=== PATIENT | female | born 1955 | race Caucasian/White ===

== ENCOUNTER 2018-02-21 08:15 | Observation (INO) | payer BC ==
[2018-02-16 15:30] VITALS: BMI 40.5
[2018-02-21 09:53] LABS: #Basophils 0.1 thou/uL (0.0-0.2); #Eosinphils 0.3 thou/uL (0.0-0.7); #Lymphocytes 3.4 thou/uL (1.20-3.40); #Monocytes 1.3 thou/uL (0.11-0.59); #Neutrophils 10.9 thou/uL (1.40-6.50); %Basophils 0.8 % (0.0-1.0); %Eosinophils 2.2 % (0.0-10.0); %Lymphocytes 21.1 % (21.0-51.0); %Monocytes 7.9 % (0.0-10.0); %Neutrophils 68.1 % (42.0-75.0); Hemoglobin 15.6 g/dL (12.0-16.0); Mean Corpuscular HGB CONC 32.6 g/dL (32.0-36.0); Mean Corpuscular Hemoglobin 30.9 pg (27.0-31.0); Mean Corpuscular Volume 94.8 fL (78.0-98.0); Mean Platelet Volume 9.2 fL (7.4-10.4); Platelet Count 313 thou/uL (130-400); RBC Distribution Width 12.3 % (11.5-14.5); Red Blood Cell (RBC) Count 5.06 mill/uL (4.20-5.40)
[2018-02-21 10:05] LABS: Anion Gap 12 mmol/L (10-20); BUN (Urea Nitrogen) 16 mg/dL (9.8-20.1); Calc. Creatinine Clearance 149 mL/min (70-130); Calcium 10.2 mg/dL (7.8-10.44); Carbon Dioxide 30 mmol/L (22-29); Chloride 102 mmol/L (98-107); Estimated GFR-MDRD 88; Glucose 119 mg/dL (70-105); Potassium 3.8 mmol/L (3.5-5.1); Sodium 140 mmol/L (136-145)
[2018-02-21] MEDS ORDERED: Sodium Chloride 0.9% 10 ML ONE (11:07)
[2018-02-21] MEDS ORDERED: Fentanyl 100 MCG/2 ML VIAL ONE ×3 (11:12→13:02)
[2018-02-21] MEDS ORDERED: Clindamycin/D5W 900 mg/50 ml Premix Bag ONE (11:17)
[2018-02-21] MEDS ORDERED: tiZANidine HCl 4 MG TAB PO PRN (12:54)
[2018-02-21] MEDS ORDERED: Promethazine 25 MG TAB PO PRN (12:54)
[2018-02-21] MEDS ORDERED: Milk Of Magnesia 30 ML UDCUP PO PRN (12:54)
[2018-02-21] MEDS ORDERED: Mag-Al 1200 mg/1200 mg/30 ML UDCUP PO PRN (12:54)
[2018-02-21] MEDS ORDERED: Promethazine HCl 25 MG/ML VIAL IM PRN (12:54)
[2018-02-21] MEDS ORDERED: Promethazine HCl 12.5 MG SUPP PR PRN (12:54)
[2018-02-21] MEDS ORDERED: diphenhydrAMINE 50 MG/ML VIAL IVP PRN (12:54)
[2018-02-21] MEDS ORDERED: Morphine 4 MG/ML VIAL SLOW IVP PRN (12:54)
[2018-02-21] MEDS ORDERED: HYDROcodone/Acetaminophen 10/325 mg Tablet PO PRN (12:54)
[2018-02-21] MEDS ORDERED: traMADol HCl 50 MG TAB PO PRN ×2 (12:54)
[2018-02-21] MEDS ORDERED: diphenhydrAMINE 25 MG CAP PO PRN (12:54)
[2018-02-21] MEDS ORDERED: Ondansetron PF 4 MG/2 ML Vial IVP PRN (12:56)
[2018-02-21] MEDS ORDERED: Morphine 2 MG/ML SYRINGE SLOW IVP PRN (13:00)
[2018-02-21] MEDS ORDERED: tiZANidine HCl 4 MG TAB ONE (13:22)
[2018-02-21] MEDS ORDERED: Glycopyrrolate 0.2 MG/ML 5 ML SYRINGE ONE (13:33)
[2018-02-21] MEDS ORDERED: Lidocaine 1% PF 5 ML VIAL ONE (13:33)
[2018-02-21] MEDS ORDERED: PROPOFOL 200 MG/20 ML VIAL ONE (13:33)
[2018-02-21] MEDS ORDERED: PHENYLEPHRINE-NS 100 MCG/ML 10 ML SYRINGE ONE (13:33)
[2018-02-21] MEDS ORDERED: Ketorolac Tromethamine 30 MG/ML VIAL ONE (13:33)
[2018-02-21] MEDS ORDERED: Ondansetron PF 4 MG/2 ML Vial ONE (13:33)
--- NOTE | 2018-02-21 13:45 | OP ---
DATE OF PROCEDURE: 02/21/2018 SURGEON: Konstantin Kimbrough M.D. PULP PRESS TENDER: Denny Armas PA-C PROCEDURE: Anterior cervical discectomy C5-6 and C6-7, interbody arthrodesis, intravertebral biomech anical device, local morselized autograft, demineralized bone matrix, anterior titanium instrumentati on C5-6 and C6-7. PROCEDURE IN DETAIL: The patient was brought to the operating room and intubated. She was positione d supine in modest extension on a gel-filled donut. Incision was made in the right precervical area and dissecting medial sternocleidomastoid muscle, identified the anterior cervical spine and our leve l was confirmed by x-ray. We debrided anterior osteophytes, placed distraction across the disk space s, and using the operating microscope and microdissection techniques, completely decompressed the C5- 6 and C6-7, the intravertebral disks decompressing the neural elements bilaterally. The bony endplat es were then decorticated for the purpose of arthrodesis and appropriately sized intravertebral biome chanical PEEK device was brought into the field, filled with demineralized bone matrix, local morseli zed autograft, and tapped into place securely at C5-6 and C6-7. Next, an anterior plate was brought in the field and secured to C5, C6, and C7 using two 14 mm screws at each level. The wound was then extensively irrigated, immaculate hemostasis was secured. The wound was closed in anatomic layers ov er a drain.
[2018-02-21] MEDS: Sodium Chloride 0.9% 1,000 ML IV SCH (16:09)
[2018-02-21] MEDS ORDERED: Morphine 10 MG/ML VIAL SLOW IVP PRN ×2 (16:45)
[2018-02-21] MEDS ORDERED: metFORMIN 500 MG TAB PO SCH (17:00)
[2018-02-21] MEDS: HYDROcodone/Acetaminophen 10/325 mg Tablet PO PRN (17:44)
--- NOTE | 2018-02-21 19:25 | EKG ---
Test Reason : PREOP Blood Pressure : / mmHG Vent. Rate : 078 BPM Atrial Rate : 078 BPM P-R Int : 174 ms QRS Dur : 084 ms QT Int : 382 ms P-R-T Axes : -21 001 024 degrees QTc Int : 435 ms Normal sinus rhythm Possible Inferior infarct (cited on or before 03-SEP-2013) Abnormal ECG When compared with ECG of 04-SEP-2013 06:32, No significant change was found Confirmed by CLAUDIO TELLO, . SJean Claude ([id number]) on 02/21/2018 7:24:26 PM Referred By: DMITRIY Confirmed By:DR. Deshawn SNYDER MD
[2018-02-21] MEDS: Clindamycin/D5W 900 MG in Premix Bag 1 BAG IVPB SCH (20:40)
[2018-02-21] MEDS ORDERED: Simvastatin 5 MG TAB PO SCH (21:00)
[2018-02-21] MEDS ORDERED: Losartan/Hydrochlorothiazide 100 mg/25 mg Tablet PO SCH (21:00)
[2018-02-22] MEDS: Sodium Chloride 0.9% 1,000 ML IV SCH (02:24)
[2018-02-22] MEDS: HYDROcodone/Acetaminophen 10/325 mg Tablet PO PRN (03:53)
[2018-02-22] MEDS: Clindamycin/D5W 900 MG in Premix Bag 1 BAG IVPB SCH (03:54)
--- NOTE | 2018-02-22 07:06 | DIS ---
DATE OF ADMISSION: 02/21/2018 DATE OF DISCHARGE: 02/22/2018 ATTENDING PHYSICIAN: Konstantin Kimbrough M.D. DISCHARGE SUMMARY: The patient is a 62-year-old female status post C5-C7 ACDF for cervical degenerative disk disease. Following her procedure, she was transitioned to the floor where her karen n was well controlled with p.o. medications, she was tolerating regular diet, and voiding appropriate ly. She has been up ambulating easily throughout the department. She did have a NKECHI drain placed int raoperatively in its output trended down nicely. A 45 mL out overnight. This was removed on postope rative day #1. On my exam this morning, she is awake, alert, comfortable, in no acute distress. She has free active range of motion in all extremities, 5/5 strength throughout. Sensation is intact to light touch. D ressing is dry. Incision is soft. We will plan to dismiss the patient to home. I have arranged follow up in 2 weeks with her office. I have discussed home care precautions and reason to reach out to us sooner. She has been provided p rescriptions for hydrocodone and Zanaflex.
[2018-02-22 07:51] VITALS: BP 155/67; TEMP 98.2
[2018-02-22] MEDS ORDERED: Meloxicam 15 MG TAB PO SCH (09:00)
[2018-02-22] MEDS ORDERED: Bupropion 150 MG XL TAB PO SCH (09:00)
== END 2018-02-22 08:45 | disposition home or self-care (01) ==
LOC: SDC 08:15 → 3SE 12:50
PROVIDERS: ADMIT Neurological Surgery; ATTEND Neurological Surgery
PROC: 0RG20A0 Fusion of 2 or more Cervical Vertebral Joints with Interbody Fusion Device, Anterior Approach, Anterior Column, Open Approach (ICD-10-PCS; principal; 2018-02-22)
PROC: 0RG2070 Fusion of 2 or more Cervical Vertebral Joints with Autologous Tissue Substitute, Anterior Approach, Anterior Column, Open Approach (ICD-10-PCS; 2018-02-22)
PROC: 0RT30ZZ Resection of Cervical Vertebral Disc, Open Approach (ICD-10-PCS; 2018-02-22)
DX: M50.122 Cervical disc disorder at C5-C6 level with radiculopathy (principal); M48.02 Spinal stenosis, cervical region; I10 Essential (primary) hypertension; E11.9 Type 2 diabetes mellitus without complications; E78.5 Hyperlipidemia, unspecified; Z79.1 Long term (current) use of non-steroidal anti-inflammatories (NSAID); Z79.82 Long term (current) use of aspirin; Z79.84 Long term (current) use of oral hypoglycemic drugs; Z79.899 Other long term (current) drug therapy; Z88.0 Allergy status to penicillin; Z88.2 Allergy status to sulfonamides; Z88.1 Allergy status to other antibiotic agents; Z88.8 Allergy status to other drugs, medicaments and biological substances
CPT/HCPCS: 36415; 76001; 80048; 85025; 93005; 93010; 96361; 96365; 96366; 96375; C1713; C1776; G0378; J0131; J1885; J2001; J2270; J2405; J2704; J3010; J3490

== ENCOUNTER 2018-03-10 15:39 | Outpatient (CLI) | payer BC ==
--- NOTE | 2018-03-10 15:57 | RAD ---
CERVICAL SPINE 3 VIEWS: HISTORY: Neck pain. Fracture. FINDINGS: Anterior fixation hardware at the C5-6-7 levels without perihardware lucency. Metallic markers assoc iated with interbody fusion material at the postoperative levels are within the confines of the disk spaces. Disk space narrowing and 0.3 cm spondylolisthesis at the C3-4 level. Moderate osteophytosis througho ut the vertebral bodies and facets. IMPRESSION: Postoperative and degenerative changes of the cervical spine including spondylolisthesis at the C3-4 level. POS: MELODY
== END 2018-03-10 15:40 | disposition home or self-care (01) ==
LOC: TBSIIMAG 15:39
PROVIDERS: ATTEND Neurological Surgery
DX: M47.22 Other spondylosis with radiculopathy, cervical region (principal); M43.12 Spondylolisthesis, cervical region; Z98.1 Arthrodesis status
CPT/HCPCS: 72040

== ENCOUNTER 2018-04-19 14:41 | Outpatient (CLI) | payer BC ==
--- NOTE | 2018-04-19 15:11 | RAD ---
CERVICAL SPINE THREE VIEWS: History: Cervical disc degeneration. Follow up surgery. Comparison: 03-10-18 FINDINGS: Post op changes are noted. The anterior plate and screws transfix C5, C6, and C7. Interbody implants are present at these levels. There has been no change in position or alignment of the hardware at the se levels. There is an anterolisthesis at C3-4 which appears stable. Loss of disc space at C3-4 is also unchange d in appearance. Degenerative changes are again noted. IMPRESSION: Degenerative and post-operative changes of the cervical spine appear stable. POS: TPC
== END 2018-04-19 14:42 | disposition home or self-care (01) ==
LOC: TBSIIMAG 14:41
PROVIDERS: ATTEND Neurological Surgery
DX: M47.22 Other spondylosis with radiculopathy, cervical region (principal); M50.10 Cervical disc disorder with radiculopathy, unspecified cervical region; Z98.890 Other specified postprocedural states
CPT/HCPCS: 72040

== ENCOUNTER 2018-11-30 22:35 | Inpatient (IN) | payer BC ==
--- NOTE | 2018-11-30 23:25 | RAD ---
Right knee 3 views HISTORY: Fall. Knee injury. FINDINGS: Extensively comminuted fracture of the distal femur including multiple planes into the bob cular surfaces of the femoral condyles. One half shaft width posterior displacement of the major distal fragments. Inferior displacement of the patella. Proximal tibia and fibula are favored to be i ntact. IMPRESSION: Extensively comminuted and displaced distal right femoral fracture with intra-articular c omponents.
--- NOTE | 2018-11-30 23:38 | RAD ---
Chest one view HISTORY: Fracture. Preop. FINDINGS: Cardiac silhouette is magnified by projection. Pulmonary vasculature is accentuated by shal low inspiration. Mediastinum is midline with aortic calcification. Aorta is somewhat tortuous. No lobar consolidation or evidence of pneumothorax. Right hemidiaphragm is elevated. Postoperative avila es cervical spine. IMPRESSION: No active cardiopulmonary abnormalities are demonstrated.
[2018-11-30 23:55] LABS: #Basophils 0.1 thou/uL (0.0-0.2); #Eosinphils 0.1 thou/uL (0.0-0.7); #Lymphocytes 1.9 thou/uL (1.20-3.40); #Monocytes 0.9 thou/uL (0.11-0.59); #Neutrophils 12.6 thou/uL (1.40-6.50); %Basophils 0.6 % (0.0-1.0); %Eosinophils 0.9 % (0.0-10.0); %Lymphocytes 12.4 % (21.0-51.0); %Monocytes 5.7 % (0.0-10.0); %Neutrophils 80.4 % (42.0-75.0); Hemoglobin 14.8 g/dL (12.0-16.0); Mean Corpuscular HGB CONC 33.6 g/dL (32.0-36.0); Mean Corpuscular Hemoglobin 31.6 pg (27.0-31.0); Mean Corpuscular Volume 93.8 fL (78.0-98.0); Mean Platelet Volume 9.4 fL (7.4-10.4); Platelet Count 246 thou/uL (130-400); RBC Distribution Width 12.2 % (11.5-14.5); Red Blood Cell (RBC) Count 4.68 mill/uL (4.20-5.40); White Blood Cell (WBC) Count 15.7 thou/uL (4.8-10.8)
[2018-12-01] MEDS ORDERED: Dextrose 5% in Water 1,000 ML IV PRN (00:14)
[2018-12-01] MEDS ORDERED: Ondansetron PF 4 MG/2 ML Vial IVP PRN (00:14)
[2018-12-01] MEDS ORDERED: Dextrose 50% Abboject 50 ML SYRINGE SLOW IVP PRN (00:14)
[2018-12-01] MEDS ORDERED: hydrALAZINE 20 MG/ML VIAL SLOW IVP PRN (00:14)
[2018-12-01] MEDS ORDERED: HumaLOG 300 UNITS/3 ML VIAL SC PRN (00:14)
[2018-12-01 00:17] LABS: ALT (SGPT) 13 U/L (8-55); AST (SGOT) 19 U/L (5-34); Albumin 3.9 g/dL (3.4-4.8); Alkaline Phosphatase 80 U/L (40-150); Anion Gap 13 mmol/L (10-20); BUN (Urea Nitrogen) 19 mg/dL (9.8-20.1); Bilirubin, Total 0.5 mg/dL (0.2-1.2); Calc. Creatinine Clearance 0 mL/min (70-130); Calcium 9.8 mg/dL (7.8-10.44); Carbon Dioxide 25 mmol/L (23-31); Chloride 105 mmol/L (98-107); Estimated GFR-MDRD 76; Globulin 2.9 g/dL (2.4-3.5); Glucose 137 mg/dL (80-115); Potassium 4.7 mmol/L (3.5-5.1); Protein, Total 6.8 g/dL (6.0-8.3); Sodium 138 mmol/L (136-145)
[2018-12-01] MEDS ORDERED: Morphine 4 MG/ML VIAL SLOW IVP PRN ×2 (00:25→09:47)
[2018-12-01] MEDS ORDERED: Polyethylene Glycol 3350 17 GM Packet PO SCH (00:30)
[2018-12-01] MEDS ORDERED: Ondansetron PF 4 MG/2 ML Vial ONE ×2 (00:38→12:44)
[2018-12-01] MEDS ORDERED: Ketorolac Tromethamine 30 MG/ML VIAL ONE (00:38)
[2018-12-01] MEDS ORDERED: Morphine 4 MG/ML VIAL ONE (00:38)
[2018-12-01] MEDS ORDERED: Adacel (T-DAP) 0.5 ML SYRINGE ONE (00:38)
[2018-12-01] MEDS ORDERED: Acetaminophen 1,000 MG in Premix Bag 1 BAG IVPB SCH (00:45)
--- NOTE | 2018-12-01 02:04 | HP ---
HISTORY OF PRESENT ILLNESS: Ms. Bernal is a 63-year-old female, who comes into the emergency room for evaluation of right lower extremity pain after mechanical fall at home. The patient reports she was walking inside the house. She tripped and fell on her knee. She reports no loss of consciousness or hitting her head. After fell, she was feeling pain of the right knee. She could not get up to walk and bear weight and that is why she called ambulance. Upon arrival, GCS 15. Vital signs stable. Reports to have some pain of the right knee. No associated head or chest pain. No pain of the abdomen or pelvis. DR Shine was consulted. Dr Shine will take patient to the OR for ORIF of R femur tomorrow. REVIEW OF SYSTEMS: Noncontributory except per HPI. PAST MEDICAL HISTORY: The patient does have a medical history of diabetes type 2, hypertension, arthritis. PAST SURGICAL HISTORY: Herniated disk surgery of the neck last year, herniated disk surgery of the back 18 years ago, appendicitis surgery. ALLERGIES: THE PATIENT REPORTS ALLERGY TO PENICILLIN, TETRACYCLINE, BACTRIM. CURRENT MEDICATIONS: Metformin 500 b.i.d. Losartan/ hydrochlorothiazide 100/ 25 mg daily Celecoxib 200mg daily Aspirin 81 mg daily SOCIAL HISTORY: Patient lives at home alone. She pretty active on her living function independently. She worked in [employer]. The patient denied alcohol use. Denied drug use. The patient smoked for 20 years, half a pack a day. PHYSICAL EXAMINATION: GENERAL: Patient lying down in bed, in no acute respiratory distress. Skin is pink and moist. GCS 15. HEENT: Atraumatic. No bruising. No deformity. NECK: Trachea midline. No tender to touch. Range of motion normal. CHEST: Atraumatic. No tender to touch. No crepitus. No deformity. No bruising. LUNGS: Clear bilaterally. HEART: Regular rate and rhythm. ABDOMEN: Nondistended. No deformity. Soft. Normal bowel sounds. No bruising. PELVIS: Stable. No tender to touch. EXTREMITIES: Upper extremity, normal range of motion, neurovascularly intact. Left lower extremity, normal range of motion, neurovascularly intact. Right extremity, pain of the right knee and right thigh. Edema, swelling, and bruising. Neurovascular intact downstream. Internal rotation of the right lower extremity. NEUROLOGY: No focal neurology deficits. INITIAL WORK UP: WC 16.3 Hb: 13.8 Potassium: 4.5 Creatinine: 0.7 XR Right femur: Comminuted fracture, displaced, intraarticular of distal R femur IMPRESSION: 1. Status post mechanical ground level fall. 2. Right distal femur fracture, comminuted. 3. History of diabetes, hypertension, arthritis. PLAN: The patient was consulted with Dr. Shine, Orthopedic. Dr. Shine will take the patient to the OR tomorrow for ORIF. The patient will be admitted to nonsurgical floor for pain control, n.p.o. at midnight and ready for OR tomorrow. We will put the patient on right knee brace for immobilization. Initiate DVT and gastritis and trauma bowel regiment prophylaxis. Job ID: [id number] MTDD
[2018-12-01 02:53] VITALS: BMI 42.0
[2018-12-01] MEDS: Sodium Chloride 0.9% 1,000 ML IV SCH ×3 (03:01→19:47)
[2018-12-01] MEDS: Acetaminophen 1,000 MG in Premix Bag 1 BAG IVPB SCH ×4 (05:10→23:01)
[2018-12-01] MEDS: Ketorolac Tromethamine 30 MG/ML VIAL IVP SCH ×4 (05:10→23:01)
[2018-12-01 05:28] LABS: #Basophils 0.1 thou/uL (0.0-0.2); #Lymphocytes 1.2 thou/uL (1.20-3.40); %Basophils 0.3 % (0.0-1.0); %Eosinophils 0.2 % (0.0-10.0); %Lymphocytes 7.2 % (21.0-51.0); %Monocytes 6.4 % (0.0-10.0); %Neutrophils 85.9 % (42.0-75.0); Hemoglobin 13.8 g/dL (12.0-16.0); Mean Corpuscular HGB CONC 32.5 g/dL (32.0-36.0); Mean Corpuscular Hemoglobin 30.8 pg (27.0-31.0); Mean Corpuscular Volume 94.8 fL (78.0-98.0); Mean Platelet Volume 9.3 fL (7.4-10.4); Platelet Count 232 thou/uL (130-400); RBC Distribution Width 12.2 % (11.5-14.5); Red Blood Cell (RBC) Count 4.48 mill/uL (4.20-5.40); White Blood Cell (WBC) Count 16.3 thou/uL (4.8-10.8)
[2018-12-01 05:47] LABS: Anion Gap 13 mmol/L (10-20); BUN (Urea Nitrogen) 20 mg/dL (9.8-20.1); Calc. Creatinine Clearance 148 mL/min (70-130); Calcium 9.5 mg/dL (7.8-10.44); Carbon Dioxide 27 mmol/L (23-31); Chloride 104 mmol/L (98-107); Estimated GFR-MDRD 85; Glucose 142 mg/dL (80-115); Magnesium 1.7 mg/dL (1.6-2.6); Potassium 4.5 mmol/L (3.5-5.1); Sodium 139 mmol/L (136-145)
[2018-12-01 05:54] LABS: Phosphorus 3.7 mg/dL (2.3-4.7)
[2018-12-01] MEDS ORDERED: Magnesium 2 GM/50 ML 2 GM in Premix Bag 1 BAG IVPB SCH (08:30)
[2018-12-01] MEDS ORDERED: Pantoprazole 40 MG VIAL IVP SCH (09:00)
[2018-12-01] MEDS: Simvastatin 5 MG TAB PO SCH (09:50)
[2018-12-01] MEDS: Bupropion 150 MG XL TAB PO SCH (09:50)
[2018-12-01] MEDS ORDERED: Bupivacaine HCl 0.5%/Epinephrine 1:200,000/PF 30 ml Vial ONE (12:21)
--- NOTE | 2018-12-01 12:27 | PRG ---
DATE OF SERVICE: 12/01/2018 A 63-year-old female status post ground level mechanical fall, right comminuted displaced intra-articular distal femur fracture, hospital day #2. SUBJECTIVE: The patient is in pain. She rates that pain 8/10. She received morphine IV about 3 hours ago when we saw her. She is n.p.o. for her operation today. Otherwise, she has no complaints. OBJECTIVE: VITAL SIGNS: Temp 98.5, pulse 83, respirations 18, O2 saturation 92% on room air, and blood pressure 138/72. GENERAL: The patient is well-appearing and in no acute distress, although she reports having pain. CARDIAC: Appears well perfused. RESPIRATIONS: No acute respiratory distress. Nonlabored breathing. ABDOMEN: Nondistended. EXTREMITIES: Neurovascularly intact. LABORATORY DATA: WBC 16.3, hemoglobin 13.8, hematocrit 42.4, and platelets 232. Sodium 139, potassium 4.5, chloride 104, carbon dioxide 27, BUN 20, and creatinine 0.70. Glucose 142, calcium 9.5, phosphorus 3.7, and magnesium 1.7. Her liver function tests yesterday were within normal limits. ASSESSMENT: 1. Status post mechanical ground level fall. 2. Right distal femur fracture, comminuted. 3. History of diabetes, hypertension, and arthritis. PLAN: The patient will go to the operating room today with Dr. Shine of Orthopedic Surgery. She will return to the nonsurgical floor for pain control. She may have a diet after the operation. The patient will be in a knee brace; we will begin VTE and gastritis prophylaxis at that time. We will also have kvng working with physical and occupational therapy after surgery. This patient was seen, examined, and discussed with Dr. Valdez, the attending physician, who agrees with the assessment and plan. Job ID: [id number] MTDD
[2018-12-01] MEDS ORDERED: PHENYLEPHRINE-NS 100 MCG/ML 10 ML SYRINGE ONE (12:44)
[2018-12-01] MEDS ORDERED: ePHEDrine 50 MG/ML VIAL ONE (12:44)
[2018-12-01] MEDS ORDERED: PROPOFOL 200 MG/20 ML VIAL ONE (12:44)
[2018-12-01] MEDS ORDERED: diphenhydrAMINE 50 MG/ML VIAL ONE (12:44)
[2018-12-01] MEDS ORDERED: Dexamethasone 20 MG/5 ML VIAL ONE (12:44)
[2018-12-01] MEDS ORDERED: Lidocaine 2% PF 5 ML VIAL ONE (12:44)
[2018-12-01] MEDS ORDERED: Clindamycin/D5W 900 mg/50 ml Premix Bag ONE (12:54)
[2018-12-01] MEDS ORDERED: Clindamycin/D5W 900 MG in Premix Bag 1 BAG IVPB SCH (13:00)
[2018-12-01] MEDS ORDERED: Fentanyl 100 MCG/2 ML VIAL ONE ×3 (13:10→15:00)
[2018-12-01] MEDS ORDERED: Midazolam HCl 2 mg/2 ml Vial ONE ×2 (13:10→13:28)
--- NOTE | 2018-12-01 14:53 | CON ---
DATE OF CONSULTATION: CHIEF COMPLAINT: Right leg pain. HISTORY OF PRESENT ILLNESS: Ms. Bernal is a 63-year-old female, who was at home yesterday when she tripped. She lost her balance and fell. She twisted her leg. She felt a pop and pain. She was unable to ambulate. She was taken to the emergency department by EMS. She lives alone and is independent. She does not use a cane or walker at baseline. She was found to have a right distal femur fracture. She was admitted to the hospital overnight. REVIEW OF SYSTEMS: Positive for right leg pain. Otherwise, negative 10-point review of systems. PAST MEDICAL HISTORY: Diabetes, obesity, hypertension, and osteoarthritis. PAST SURGICAL HISTORY: Previous cervical disk herniation repair as well as lumbar back surgery years ago. She has also had an appendectomy. ALLERGIES: TO PENICILLIN, TETRACYCLINE, AND BACTRIM. SOCIAL HISTORY: The patient lives at home. She works at [employer]. She denies alcohol or drug use. She does smoke cigarettes. IMAGES: X-rays of the right femur demonstrate a displaced and comminuted distal femur fracture with intra-articular extension. The patient has osteoporotic appearance to her bone. PHYSICAL EXAMINATION: VITAL SIGNS: Temperature is 97.8, pulse is 79, respiratory rate 20, oxygen saturation 93%, and blood pressure is 128/69. GENERAL: She is alert and oriented, no apparent distress. RESPIRATORY: Breathing comfortably. ABDOMEN: Soft, nontender, and nondistended. MUSCULOSKELETAL: The patient's right lower extremity is in a malaligned position with increased valgus alignment. She has an abrasion over the knee. She has intact neurovascular status distally. She is able to move the foot and ankle and has a palpable dorsalis pedis pulse. Left lower extremity and upper extremities are atraumatic. IMPRESSION: Right distal femur fracture. PLAN: At this point, the patient will need to go to the operating room for open reduction and internal fixation of the distal femur. We will plan for plating of the distal femur to correct her intercondylar split and stabilize the bone. Risks have been reviewed with her. She is at elevated risk of infection given her diabetes or wound complication. She is aware that she will need 6 weeks of toe-touch weightbearing at a minimum. She will need DVT prophylaxis and antibiotic prophylaxis. Job ID: [id number]
[2018-12-01] MEDS ORDERED: Meperidine HCl/PF 25 MG/ML VIAL SLOW IVP PRN (16:15)
[2018-12-01] MEDS ORDERED: Promethazine HCl 25 MG/ML VIAL SLOW IVP PRN (16:15)
[2018-12-01] MEDS ORDERED: Ondansetron HCl/PF 4 MG/2 ML Vial IVP PRN (16:15)
[2018-12-01] MEDS ORDERED: traMADol HCl 50 MG TAB PO PRN (18:22)
[2018-12-01] MEDS: traMADol HCl 50 MG TAB PO SCH ×2 (18:34→23:00)
[2018-12-01] MEDS: Senokot S 8.6-50 MG TAB PO SCH (18:34)
--- NOTE | 2018-12-01 18:50 | RAD ---
Right hand 2 views intraoperative fluoroscopy HISTORY: Fracture. FINDINGS: Intraoperative fluoroscopy was provided for internal fixation is by Dr. Shine. Spot flu oroscopic images show intraoperative placement of a lateral compression plate and multiple screws transfixing the distal femoral fracture. Alignment is anatomic. Fluoroscopy time 38 seconds.
[2018-12-01] MEDS: Losartan/Hydrochlorothiazide 100 mg/25 mg Tablet PO SCH (19:47)
[2018-12-01] MEDS: Clindamycin/D5W 900 MG in Premix Bag 1 BAG IVPB SCH (19:54)
--- NOTE | 2018-12-01 22:38 | OP ---
DATE OF PROCEDURE: 12/01/2018 PROCEDURE PERFORMED: Open reduction and internal fixation of right intra-articular distal femur fracture. PREOPERATIVE DIAGNOSIS: Right intra-articular distal femur fracture. POSTOPERATIVE DIAGNOSIS: Right intra-articular distal femur fracture. COMPLICATIONS: None. ESTIMATED BLOOD LOSS: 100 mL. ANESTHESIA: General plus regional. IMPLANTS: Synthes 16 hole distal femoral plate with multiple locking and nonlocking screws. INDICATIONS: Ms. Bernal is a 63-year-old female, who has fallen and fractured her distal femur. She has displacement and intra-articular step-off. She has been indicated for open reduction and internal fixation to restore anatomic alignment and promote healing. Risks have been reviewed in detail. She has elected to proceed with the operation. DESCRIPTION OF PROCEDURE: Ms. Bernal was identified in the preoperative holding area. Her correct extremity was marked. She was carried to the operating room. She was positioned supine. General anesthesia was induced. Intravenous antibiotics were administered. The right lower extremity was prepped and draped in sterile fashion. We began the procedure with a lateral approach to the distal femur. We made an incision over the knee and thigh. We dissected down through the subcutaneous tissues. The lateral fascia was split. We then performed a lateral arthrotomy. We evacuated hematoma. At this point, we encountered the displaced and comminuted distal femur fracture. There was an intercondylar split as well as Hoffa fracture through the lateral condyle. At this point, we reduced the transverse fracture through the lateral condyle and held this with K-wire fixation. We then placed a screw across this from front to back. Next, we reduced the intercondylar split. A screw was placed from lateral to medial, fixing the intercondylar split. At this point, we could reduce the condyles back to the shaft of the bone. This was accomplished. We then applied our 16-hole plate along the lateral cortex of the femur. We placed the screw proximally as well as K-wires distally. We took x-rays confirming plate position. There was no complication. At this point, we performed multiple screw placement starting distally filling all locking screws distally followed by proximal locking screw placement. We took x-ray images confirming hardware placement and reduction. There was no complications. We thoroughly irrigated with copious lavage. We then closed appropriately in layers starting with the fascia layer. A sterile dressing and a knee immobilizer was placed. Job ID: [id number]
[2018-12-02] MEDS: Ibuprofen 600 MG TAB PO SCH ×4 (00:25→18:01)
--- NOTE | 2018-12-02 01:01 | PRG ---
DATE OF SERVICE: 12/01/2018 SUBJECTIVE: Ms. Bernal is a 63-year-old female, who is status post ground level fall in which she sustained right distal femur fracture. She underwent ORIF of right distal femur fracture this evening. Postop, the patient is doing good. Pain is well controlled. She developed no fever or shortness of breath. OBJECTIVE: VITAL SIGNS: Stable. LUNGS: Clear bilaterally. HEART: Regular rate and rhythm. ABDOMEN: Soft, nondistended. EXTREMITIES: Neurovascularly intact x4. Dressing changed from the right femur, clean, clear, and intact. PLAN: Will be to continue supportive care. Continue pain control. Continue DVT and gastritic prophylaxis. The patient will be working with PT and OT tomorrow, anticipated placement in rehabilitation facility. Job ID: [id number]
[2018-12-02] MEDS: Acetaminophen 500 MG TAB PO SCH ×4 (05:04→23:38)
[2018-12-02] MEDS: traMADol HCl 50 MG TAB PO SCH ×4 (05:05→23:39)
[2018-12-02] MEDS: Senokot S 8.6-50 MG TAB PO SCH ×2 (05:05→18:00)
[2018-12-02] MEDS: Clindamycin/D5W 900 MG in Premix Bag 1 BAG IVPB SCH (05:07)
[2018-12-02 06:45] LABS: #Lymphocytes 1.3 thou/uL (1.20-3.40); #Monocytes 1.4 thou/uL (0.11-0.59); #Neutrophils 13.9 thou/uL (1.40-6.50); %Eosinophils 0.1 % (0.0-10.0); %Lymphocytes 7.5 % (21.0-51.0); %Monocytes 8.3 % (0.0-10.0); Hemoglobin 11.4 g/dL (12.0-16.0); Mean Corpuscular HGB CONC 32.6 g/dL (32.0-36.0); Mean Corpuscular Hemoglobin 30.6 pg (27.0-31.0); Mean Platelet Volume 9.3 fL (7.4-10.4); Platelet Count 204 thou/uL (130-400); RBC Distribution Width 11.8 % (11.5-14.5); Red Blood Cell (RBC) Count 3.72 mill/uL (4.20-5.40); White Blood Cell (WBC) Count 16.6 thou/uL (4.8-10.8)
[2018-12-02 07:17] LABS: Anion Gap 11 mmol/L (10-20); BUN (Urea Nitrogen) 16 mg/dL (9.8-20.1); Calc. Creatinine Clearance 164 mL/min (70-130); Calcium 9.1 mg/dL (7.8-10.44); Carbon Dioxide 28 mmol/L (23-31); Chloride 102 mmol/L (98-107); Estimated GFR-MDRD Greater than 90; Glucose 134 mg/dL (80-115); Magnesium 2.1 mg/dL (1.6-2.6); Phosphorus 2.8 mg/dL (2.3-4.7); Potassium 4.5 mmol/L (3.5-5.1); Sodium 136 mmol/L (136-145)
[2018-12-02] MEDS: Bupropion 150 MG XL TAB PO SCH (08:50)
[2018-12-02] MEDS: Simvastatin 5 MG TAB PO SCH (08:50)
[2018-12-02] MEDS: metFORMIN 500 MG TAB PO SCH ×2 (08:50→18:01)
[2018-12-02] MEDS: Aspirin 81 mg Enteric Coated Tablet PO SCH ×2 (08:56→20:32)
--- NOTE | 2018-12-02 15:21 | PRG ---
DATE OF SERVICE: 12/02/2018 SUBJECTIVE: The patient remains on the surgical floor. She is status post ground level fall, in which she sustained a right intra-articular distal femur fracture. Yesterday, she underwent open reduction and internal fixation of right intra-articular distal femur fracture. She tolerated this procedure well. She has not worked with Therapy yet. Overnight, she had no issues. This morning, her pain is controlled. She is tolerating a diet. PHYSICAL EXAMINATION: VITAL SIGNS: Temperature 98, heart rate 85, blood pressure 104/48, respirations 18, and oxygen saturation is 91% on room air. GENERAL: The patient is resting comfortably in bed. She is awake, alert, and oriented x3. Alex Coma Scale is 15. HEENT: Unremarkable. LUNGS: Clear to auscultation bilaterally. HEART: Regular rate and rhythm. ABDOMEN: Soft, flat, nontender with active bowel sounds. EXTREMITIES: Neurovascularly intact x4. Postop dressing is clean, dry, and intact. ASSESSMENT: 1. Status post ground level fall. 2. Status post open reduction and internal fixation of right distal femur fracture. 3. History of diabetes, hypertension, arthritis. PLAN: Plan will be to continue supportive care. Encourage physical and occupational therapy, rehab screening, and we will await final placement decision. The patient was evaluated this morning with Dr. Valdez during rounds. Job ID: [id number]
[2018-12-02] MEDS ORDERED: Ibuprofen 600 MG TAB PO SCH (18:30)
[2018-12-02] MEDS: Losartan/Hydrochlorothiazide 100 mg/25 mg Tablet PO SCH (20:32)
[2018-12-03] MEDS: Ibuprofen 600 MG TAB PO SCH ×4 (00:22→17:01)
--- NOTE | 2018-12-03 01:22 | PRG ---
DATE OF SERVICE: 12/03/2018 SUBJECTIVE: Ms. Bernal is a 63-year-old female who is status post ground level fall at home, in which she sustained right distal femur fracture. She underwent ORIF of right distal femur fracture. Postop 1, the patient has been doing good. Pain is well controlled. She developed no fever or shortness of breath. She tolerated regular diet. Urine is adequate. OBJECTIVE: GENERAL: Patient lying down in bed comfortably with no acute distress. VITAL SIGNS: Stable. LUNGS: Clear bilaterally. HEART: Regular rate and rhythm. ABDOMEN: Soft, nondistended. EXTREMITIES: Neurovascularly intact x4. Dressing from the right femur clean, clear, and intact. PLAN: We will continue supportive care. Continue pain control. Continue DVT and gastritis prophylaxis. Continue pulmonary toilet. Continue working with PT/OT tomorrow and anticipate placement in the rehabilitation facility. Job ID: [id number]
[2018-12-03] MEDS: Acetaminophen 500 MG TAB PO SCH ×3 (05:24→16:59)
[2018-12-03] MEDS: Senokot S 8.6-50 MG TAB PO SCH ×2 (05:25→16:59)
[2018-12-03] MEDS: traMADol HCl 50 MG TAB PO SCH ×3 (05:25→16:59)
[2018-12-03] MEDS: Bupropion 150 MG XL TAB PO SCH (08:17)
[2018-12-03] MEDS: Simvastatin 5 MG TAB PO SCH (08:17)
[2018-12-03] MEDS: metFORMIN 500 MG TAB PO SCH ×2 (08:17→17:00)
[2018-12-03] MEDS: Aspirin 81 mg Enteric Coated Tablet PO SCH ×2 (08:17→20:36)
--- NOTE | 2018-12-03 15:28 | PRG ---
DATE OF SERVICE: 12/03/2018 SUBJECTIVE: The patient is currently on the surgical floor. She is status post open reduction and internal fixation of a right distal femur fracture. She has been working with Physical and Occupational Therapy. Her pain is controlled. She is tolerating a diet. She is currently awaiting insurance approval for rehab. She has had no issues overnight. OBJECTIVE: VITAL SIGNS: Temperature is 97.8, heart rate 68, blood pressure 107/58, respirations 18, oxygen saturation is 95% on 2 L via nasal cannula. GENERAL: The patient is resting comfortably in bed. She is awake, alert, oriented, appropriate. HEENT: Unremarkable. LUNGS: Clear to auscultation with good inspiratory and expiratory effort. HEART: Regular rate and rhythm. ABDOMEN: Soft, flat, nontender with active bowel sounds. EXTREMITIES: Neurovascularly intact x4. Postop dressing is clean, dry, and intact. LABORATORY AND DIAGNOSTIC DATA: There are no labs or radiographs reviewed this morning. ASSESSMENT: 1. Status post ground level fall. 2. Status post open reduction and internal fixation of right distal femur fracture. 3. History of diabetes, hypertension, and arthritis. PLAN: Plan will be to continue supportive care, physical and occupational therapy, and await final placement decision. The patient was seen this morning with Dr. Valdez during rounds. Job ID: [id number]
[2018-12-03] MEDS: Losartan/Hydrochlorothiazide 100 mg/25 mg Tablet PO SCH (20:36)
--- NOTE | 2018-12-04 00:13 | PRG ---
DATE OF SERVICE: 12/03/2018 SUBJECTIVE: Ms. Bernal is a 63-year-old female, status post ground level fall. She sustained right distal femur fracture, underwent ORIF of right distal femur fracture. Postop day 2, the patient has been doing good. Pain is well controlled. She developed no fever or shortness of breath. Tolerating regular diet. She is able to work with PT/OT. OBJECTIVE: GENERAL: The patient is lying down in bed comfortable with no acute distress. VITAL SIGNS: Stable. LUNGS: Clear bilaterally. HEART: Regular rate and rhythm. ABDOMEN: Soft, nondistended. EXTREMITIES: Neurovascularly intact x4. Dressing from right femur clean, dry, and intact. PLAN: Will be to continue supportive care. Continue pain control. Continue DVT gastritis prophylaxis. Continue pulmonary toilet. Continue working with PT, OT. The patient will be anticipated placement in rehabilitation facility. Job ID: [id number]
[2018-12-04] MEDS: Acetaminophen 500 MG TAB PO SCH ×5 (00:40→23:56)
[2018-12-04] MEDS: traMADol HCl 50 MG TAB PO SCH ×5 (00:40→23:56)
[2018-12-04] MEDS: Ibuprofen 600 MG TAB PO SCH ×5 (00:40→23:59)
--- NOTE | 2018-12-04 03:16 | EKG ---
Test Reason : Blood Pressure : / mmHG Vent. Rate : 068 BPM Atrial Rate : 068 BPM P-R Int : 192 ms QRS Dur : 080 ms QT Int : 404 ms P-R-T Axes : 045 -08 062 degrees QTc Int : 429 ms Normal sinus rhythm Possible Left atrial enlargement Borderline ECG Confirmed by CHAI PASTRANA DO ([id number]), assistant editor RIYA BURCH ([id number]) on 12/04/2018 3:15:17 AM Referred By: Confirmed By:CHAI PASTRANA DO
[2018-12-04] MEDS: Senokot S 8.6-50 MG TAB PO SCH ×2 (06:22→17:03)
[2018-12-04] MEDS: Simvastatin 5 MG TAB PO SCH (08:38)
[2018-12-04] MEDS: Bupropion 150 MG XL TAB PO SCH (08:39)
[2018-12-04] MEDS: metFORMIN 500 MG TAB PO SCH ×2 (08:39→17:02)
[2018-12-04] MEDS: Aspirin 81 mg Enteric Coated Tablet PO SCH ×2 (08:39→20:50)
--- NOTE | 2018-12-04 19:56 | PRG ---
DATE OF SERVICE: 12/04/2018 SUBJECTIVE: The patient is currently on the surgical floor. She is status post ground level fall when she sustained a right distal femur fracture. She has undergone open reduction and internal fixation of same. She had no issues overnight. She states her pain is controlled. She is tolerating a diet. She unfortunately has not made much progress with Physical and Occupational Therapy. She has been able to get out of bed, but has not started utilizing a walker at this time. I had a lengthy discussion with her regarding rehab potential if she is not able to progress with Physical and Occupational Therapy, and that she may require jail facility. She felt it was more of weakness and then pain control prevented her. OBJECTIVE: VITAL SIGNS: Temperature is 98.1, heart rate 76, blood pressure 127/72, respirations 16, and oxygen saturation 92% on room air. GENERAL: The patient is resting comfortably in bed. She is just returned from being out of the room on a wheelchair. She has no complaints at this time. She is alert and oriented x3. HEENT: Unremarkable. LUNGS: Clear to auscultation with good inspiratory and expiratory effort. HEART: Regular rate and rhythm. ABDOMEN: Soft, flat, and nontender with active bowel sounds. EXTREMITIES: Neurovascularly intact x4. Postop dressing is clean, dry, and intact. LABORATORY AND DIAGNOSTIC DATA: There are no labs or radiographs to review this morning. ASSESSMENT: 1. Status post ground level fall. 2. Status post open reduction and internal fixation of right distal femur fracture. 3. History of diabetes, hypertension, and arthritis. PLAN: Plan will be to continue supportive care. Encourage physical and occupational therapy and await final placement decision. Job ID: [id number]
[2018-12-04] MEDS: Losartan/Hydrochlorothiazide 100 mg/25 mg Tablet PO SCH (20:50)
--- NOTE | 2018-12-05 00:50 | PRG ---
DATE OF SERVICE: 12/05/2018 SUBJECTIVE: Ms. Bernal is 63-year-old female, who status post ground level fall. She sustained right distal femur fracture, underwent ORIF of right distal femur fracture. Postop day 3, the patient has been doing good. Pain is well controlled. She developed no fever or shortness of breath. She tolerates regular diet. She is able to work with PT/OT. She has been working to strengthen her upper extremity strength, so she can use prosthesis at home. OBJECTIVE: GENERAL: The patient is lying down in bed comfortably with no acute distress. VITAL SIGNS: Stable. LUNGS: Clear bilaterally. HEART: Regular rate and rhythm. ABDOMEN: Soft and nondistended. EXTREMITIES: Neurovascularly intact x4. Dressing and splinting from right femur clean, dry, intact. PLAN: Will be continue supportive care. Continue pain control. Continue DVT and gastritis prophylaxis. Continue pulmonary toilet. Continue working with PT/OT. The patient will be anticipated placement in rehabilitation facility. Job ID: [id number]
[2018-12-05] MEDS: Ibuprofen 600 MG TAB PO SCH ×3 (06:11→18:00)
[2018-12-05] MEDS: traMADol HCl 50 MG TAB PO SCH ×3 (06:11→18:00)
[2018-12-05] MEDS: Senokot S 8.6-50 MG TAB PO SCH ×2 (06:11→18:00)
[2018-12-05] MEDS: Acetaminophen 500 MG TAB PO SCH ×3 (06:12→18:00)
[2018-12-05 07:23] LABS: Hemoglobin 10.7 g/dL (12.0-16.0); Mean Corpuscular Hemoglobin 31.2 pg (27.0-31.0); Mean Corpuscular Volume 94.6 fL (78.0-98.0); Mean Platelet Volume 9.5 fL (7.4-10.4); Platelet Count 237 thou/uL (130-400); Red Blood Cell (RBC) Count 3.42 mill/uL (4.20-5.40); White Blood Cell (WBC) Count 9.6 thou/uL (4.8-10.8)
[2018-12-05] MEDS: Aspirin 81 mg Enteric Coated Tablet PO SCH ×2 (08:01→20:43)
[2018-12-05] MEDS: metFORMIN 500 MG TAB PO SCH ×2 (08:01→18:00)
[2018-12-05] MEDS: Bupropion 150 MG XL TAB PO SCH (08:01)
[2018-12-05] MEDS: Simvastatin 5 MG TAB PO SCH (08:01)
[2018-12-05 08:02] LABS: Eosinophils 1 % (0-10); Lymphocytes 23 % (21-51); MDiff Complete? YES; Monocytes 9 % (0-10); Neutrophil 66 % (42-75); Platelet Morphology Comment Appears Adequate; Polychromasia SLIGHT = 2-3 cells (100X) (0-2/hpf)
--- NOTE | 2018-12-05 11:56 | PRG ---
DATE OF SERVICE: 12/05/2018 SUBJECTIVE: Abby Bernal is a 63-year-old female, who fell, underwent ORIF of her femur. The patient is awaiting the rehab assignment. She has no complaints today. Physical Therapy is working with her. OBJECTIVE: VITAL SIGNS: 98.2 degrees, 81, and 113/53. LUNGS: Clear to auscultation. CARDIAC: Regular rate and rhythm without murmur or gallop. ABDOMEN: Soft and nontender. EXTREMITIES: Unremarkable. LABORATORY DATA: White count 9 and hemoglobin 10.7. Glucose is 130 to 120. ASSESSMENT AND PLAN: Status post open reduction and internal fixation femur. Awaiting rehab placement. The patient is ready for discharge. Job ID: [id number]
[2018-12-05] MEDS: Losartan/Hydrochlorothiazide 100 mg/25 mg Tablet PO SCH (20:43)
[2018-12-06] MEDS: Ibuprofen 600 MG TAB PO SCH ×4 (00:47→20:32)
[2018-12-06] MEDS: traMADol HCl 50 MG TAB PO SCH ×5 (00:48→23:54)
[2018-12-06] MEDS: Acetaminophen 500 MG TAB PO SCH ×5 (00:48→23:55)
--- NOTE | 2018-12-06 01:07 | PRG ---
DATE OF SERVICE: 12/05/2018 SUBJECTIVE: Ms. Bernal is a 63-year-old female, status post ground level fall with right femur fracture, underwent ORIF of right distal femur fracture, postop day 4. The patient is doing good. Pain is well controlled. She is able to work with PT/OT. OBJECTIVE: GENERAL: The patient is lying down in bed comfortably with no acute distress. VITAL SIGNS: Stable. LUNGS: Clear. HEART: Regular rate and rhythm. EXTREMITIES: Neurovascularly intact x4. Dressing and splinting; clean, dry, and intact. PLAN: We will continue supportive care. The patient is waiting for placement in rehabilitation facility. Job ID: [id number]
[2018-12-06] MEDS: Senokot S 8.6-50 MG TAB PO SCH ×2 (05:54→18:27)
[2018-12-06] MEDS: Bupropion 150 MG XL TAB PO SCH (08:55)
[2018-12-06] MEDS: metFORMIN 500 MG TAB PO SCH ×2 (08:55→14:59)
[2018-12-06] MEDS: Aspirin 81 mg Enteric Coated Tablet PO SCH ×2 (08:55→20:32)
[2018-12-06] MEDS: Simvastatin 5 MG TAB PO SCH (08:56)
--- NOTE | 2018-12-06 16:47 | PRG ---
DATE OF SERVICE: 12/06/2018 SUBJECTIVE: The patient was seen this morning sitting up in bed with no signs of acute distress. She is postoperative day 5 now after ORIF of the right distal femur and is pending placement at acute rehab. She is tolerating regular diet. Pain is well controlled, and she continues to work with Physical and Occupational Therapy. OBJECTIVE: VITAL SIGNS: Temperature 98.2, pulse 77, respirations 18, oxygen saturation 98% on room air, blood pressure 130/76. GENERAL: Well-appearing elderly female, sitting up in bed with no signs of acute distress. PULMONARY: Equal chest rise and fall. Clear breath sounds bilaterally. No signs of acute respiratory distress. CARDIAC: Regular rate and rhythm. No murmurs, gallops, or rubs. GI: Abdomen is soft, nontender, and nondistended. EXTREMITIES: 2+ pulses in all extremities. No significant swelling noted. Gross motor and sensation are intact. Right lower extremity with splint that is in place, clean and dry. NEUROLOGIC: GCS is 15. LABORATORY FINDINGS: There are no new laboratory findings to report. DIAGNOSTIC FINDINGS: There are no new diagnostic findings to report. ASSESSMENT: 1. Status post mechanical fall. 2. Right distal femur fracture. 3. History of diabetes, hypertension, and osteoarthritis. PLAN: We will continue the patient on all of her home medications as previously prescribed. Continue her current pain regimen and diet. Continue physical and occupational therapy. The patient to have glucose checks a.c. and at bedtime. She is pending insurance authorization for acute rehab. She is ready for discharge at this time. Job ID: [id number] MTDD
[2018-12-06] MEDS: Losartan/Hydrochlorothiazide 100 mg/25 mg Tablet PO SCH (20:32)
--- NOTE | 2018-12-06 22:36 | PRG ---
DATE OF SERVICE: 12/06/2018 SUBJECTIVE: This is a 63-year-old lady, postop day #5 open reduction and internal fixation of right distal femur fracture. The patient is awake, alert, in no distress. The patient continues to tolerate a regular diet. The patient reports that her pain is well controlled at this time. The patient has no complaints or concerns at this time. OBJECTIVE: VITAL SIGNS: Stable, the patient remains afebrile. GENERAL: Well-appearing elderly female, sitting up in bed, in no distress. PULMONARY: Equal chest rise and fall. No respiratory distress. EXTREMITIES: Moves all extremities. 2+ distal pulses in all extremities. Right lower extremity with splint in place and clean, dry, and intact. ASSESSMENT: 1. Status post mechanical fall. 2. Right distal femur fracture. 3. History of diabetes, hypertension, and osteoarthritis. PLAN: Continue supportive care. Continue physical and occupational therapy. The patient is pending insurance authorization for inpatient rehab. The plan has been discussed with the patient who agrees. Job ID: [id number]
[2018-12-07] MEDS: Ibuprofen 600 MG TAB PO SCH ×4 (01:51→18:49)
[2018-12-07] MEDS: Acetaminophen 500 MG TAB PO SCH ×4 (05:22→23:50)
[2018-12-07] MEDS: traMADol HCl 50 MG TAB PO SCH ×4 (05:22→23:50)
[2018-12-07] MEDS: Senokot S 8.6-50 MG TAB PO SCH ×2 (05:22→18:44)
[2018-12-07] MEDS: Simvastatin 5 MG TAB PO SCH (08:32)
[2018-12-07] MEDS: metFORMIN 500 MG TAB PO SCH ×2 (08:32→16:50)
[2018-12-07] MEDS: Aspirin 81 mg Enteric Coated Tablet PO SCH ×2 (08:32→20:49)
[2018-12-07] MEDS: Bupropion 150 MG XL TAB PO SCH (08:32)
--- NOTE | 2018-12-07 15:47 | PRG ---
DATE OF SERVICE: 12/07/2018 SUBJECTIVE: The patient was seen this morning during rounds. She was sitting up in bed with no signs of acute distress. She reported her pain was controlled. She was tolerating a diabetic diet. She is pending placement at rehab facility. OBJECTIVE: VITAL SIGNS: Temperature 98.2, pulse 80, respirations 16, oxygen saturation 95% on room air, and blood pressure 116/74. GENERAL: Well-appearing elderly female, sitting up in bed with no signs of acute distress. PULMONARY: Equal chest rise and fall. Clear breath sounds bilaterally. No signs of acute respiratory distress. CARDIAC: Regular rate and rhythm. No murmurs, gallops, or rubs. GI: Abdomen is soft, nontender, and nondistended. EXTREMITIES: 2+ pulses in all extremities. No significant swelling noted. Gross motor and sensation are intact. NEUROLOGIC: GCS is 15. LABORATORY FINDINGS: There are no new laboratory findings to discuss. DIAGNOSTIC FINDINGS: There are no new diagnostic findings to discuss. ASSESSMENT: 1. Status post mechanical fall from standing. 2. Right distal femur fracture. 3. History of diabetes, hypertension, and osteoarthritis. PLAN: Continue current diet and pain regimen. Continue physical and occupational therapy as well as supportive care. The patient was denied from rehab facility by the insurance and we will send a referral to [facility] facilities. The patient was seen and examined by Dr. Valdez and myself this morning during rounds. Job ID: [id number]
[2018-12-07] MEDS: Losartan/Hydrochlorothiazide 100 mg/25 mg Tablet PO SCH (20:49)
--- NOTE | 2018-12-07 22:19 | PRG ---
DATE OF SERVICE: 12/07/2018 SUBJECTIVE: The patient remains on the surgical floor. The patient is awake, alert, lying in hospital bed, in no acute distress. The patient reports that her pain is well controlled. The patient is postop day #6 open reduction and internal fixation of right distal femur fracture. The patient continues to tolerate a diabetic diet. The patient voices no complaints or concerns and reports the pain is well controlled. OBJECTIVE: VITAL SIGNS: Stable, the patient remains afebrile. ASSESSMENT: 1. Status post mechanical fall from standing. 2. Right distal femur fracture, postop day #6, open reduction and internal fixation. 3. History of diabetes, hypertension, osteoarthritis. PLAN: Continue current diet and pain regimen. Continue physical and occupational therapy as well as supportive care. The patient was denied placement to inpatient rehab for insurance, a referral was sent to [facility] facilities. The patient is pending placement. The plan was discussed with the patient, who agrees. Job ID: [id number]
[2018-12-08] MEDS: Ibuprofen 600 MG TAB PO SCH ×3 (01:46→13:27)
[2018-12-08] MEDS: Senokot S 8.6-50 MG TAB PO SCH (05:12)
[2018-12-08] MEDS: Acetaminophen 500 MG TAB PO SCH ×2 (05:12→12:08)
[2018-12-08] MEDS: traMADol HCl 50 MG TAB PO SCH ×2 (05:13→12:08)
[2018-12-08] MEDS: metFORMIN 500 MG TAB PO SCH (08:10)
[2018-12-08] MEDS: Bupropion 150 MG XL TAB PO SCH (08:10)
[2018-12-08] MEDS: Aspirin 81 mg Enteric Coated Tablet PO SCH (08:10)
[2018-12-08] MEDS: Simvastatin 5 MG TAB PO SCH (08:10)
--- NOTE | 2018-12-08 11:39 | PRG ---
DATE OF SERVICE: 12/08/2018 SUBJECTIVE: The patient was seen this morning, sitting up in bed with no signs of acute distress. She reported she slept well overnight and tolerated her breakfast. She is postoperative day #7 for ORIF of the right distal femur. She denied rehab services and is pending a swing bed at [facility]. She continues to work with Physical and Occupational Therapy and has no complaints at the time of my evaluation. OBJECTIVE: VITAL SIGNS: Temperature 98.7, pulse 76, respirations 16, oxygen saturation 92% on room air, and blood pressure 144/73. GENERAL: Well-appearing elderly female, sitting in the bed with no signs of acute distress. PULMONARY: Equal chest rise and fall with clear breath sounds bilaterally. No signs of acute respiratory distress. CARDIAC: Regular rate and rhythm. No murmurs, gallops, or rubs. GI: Abdomen is soft, nontender, and nondistended. EXTREMITIES: 2+ pulses in all extremities. No significant swelling noted. Gross motor and sensation are intact. LABORATORY FINDINGS: There are no new laboratory findings to discuss. DIAGNOSTIC FINDINGS: There are no new diagnostic findings to discuss. ASSESSMENT: 1. Status post mechanical fall from standing. 2. Right distal femur fracture, status post repair. 3. History of diabetes, hypertension, and osteoarthritis. PLAN: We will continue the patient's current diet and medications. Continue physical and occupational therapy. She has not been able to ambulate, but has been pushing herself around in a wheelchair. We will try to get the patient sitting up in a chair more today. She was denied by rehab, but is pending placement at [facility] swing bed. She is ready for discharge at this time. Job ID: [id number]
[2018-12-08 15:22] VITALS: BP 126/62; TEMP 98
--- NOTE | 2018-12-09 02:37 | DIS ---
DATE OF ADMISSION: 11/30/2018 DATE OF DISCHARGE: 12/08/2018 ADMISSION DIAGNOSIS: Mechanical fall from standing and a right distal femur fracture. DISCHARGE DIAGNOSIS: Mechanical fall from standing and a right distal femur fracture. CONSULTING PHYSICIAN: Dr. Shine of Orthopedic Surgery. PROCEDURES: The patient went to the OR on December 01, 2018, and received an ORIF of the right distal femur fracture. HOSPITAL COURSE: The patient is a 63-year-old female who presented to the emergency department after a mechanical fall with no loss of consciousness. She was found to have a right distal femur fracture and she was admitted to the Trauma Service. She went to the OR on December 01, 2018, for fixation of her right distal femur. Postoperatively, she worked with Physical and Occupational Therapy. She was restarted on all of her home medications. She was tolerating a diabetic diet. Her pain was well controlled. She was voiding and having bowel movements at the time of discharge. DISCHARGE DISPOSITION: [facility] bed. DISCHARGE CONDITION: Satisfactory. PHYSICAL EXAMINATION: VITAL SIGNS: Temperature 97.6, pulse 86, respirations 18, oxygen saturation 92% on room air, blood pressure 110/61. GENERAL: Well-appearing elderly female sitting up in bed with no signs of acute distress. PULMONARY: Equal chest rise and fall. Clear breath sounds bilaterally. No signs of acute respiratory distress. CARDIAC: Regular rate and rhythm. No murmurs, gallops, or rubs. GASTROINTESTINAL: Abdomen soft, nontender, nondistended. EXTREMITIES: 2+ pulses in all extremities. No significant swelling noted. Gross motor and sensation are intact. NEURO: GCS is 15. DISCHARGE INSTRUCTIONS: The patient was discharged. Activity as tolerated. Toe-touch weightbearing to the right lower extremity with a diabetic diet. She is to have physical and occupational therapy as well as a wheelchair, walker and incentive spirometry. DISCHARGE MEDICATIONS: Include; 1. Tylenol. 2. Aspirin. 3. Wellbutrin. 4. Ibuprofen. 5. Losartan/hydrochlorothiazide. 6. Metformin. 7. MiraLAX. 8. Pravastatin. 9. Senokot S. FOLLOWUP APPOINTMENTS: The patient is to follow up with Dr. Shine in 14 days. No need to follow up with Dr. Valdez. This is merely a summary of the patient's hospitalization. For full details, please see her medical record in its entirety. Job ID: [id number]
== END 2018-12-08 16:37 | disposition swing bed (61) | DRG 481 ==
LOC: ERS 22:35 → SURG A 23:55
PROVIDERS: ADMIT Surgery; ATTEND Surgery
PROC: 0QSB04Z Reposition Right Lower Femur with Internal Fixation Device, Open Approach (ICD-10-PCS; principal; 2018-12-01)
DX: S72.491A Other fracture of lower end of right femur, initial encounter for closed fracture (principal); Z68.41 Body mass index [BMI] 40.0-44.9, adult; W01.0XXA Fall on same level from slipping, tripping and stumbling without subsequent striking against object, initial encounter; I10 Essential (primary) hypertension; E11.9 Type 2 diabetes mellitus without complications; M19.90 Unspecified osteoarthritis, unspecified site; E66.9 Obesity, unspecified; F17.210 Nicotine dependence, cigarettes, uncomplicated; Y92.009 Unspecified place in unspecified non-institutional (private) residence as the place of occurrence of the external cause; Z88.0 Allergy status to penicillin; Z88.1 Allergy status to other antibiotic agents; Z79.82 Long term (current) use of aspirin; Z79.84 Long term (current) use of oral hypoglycemic drugs; Z90.49 Acquired absence of other specified parts of digestive tract
CPT/HCPCS: 36415; 36416; 71045; 76000; 80048; 80053; 83735; 84100; 85007; 85025; 85027; 86850; 86900; 86901; 90471; 90715; 93005; 96365; 96375; C1713; C1769; G0390; J0131; J0670; J1100; J1200; J1885; J2001; J2250; J2270; J2405; J2704; J3010; J3475; J3490

== ENCOUNTER 2021-08-18 13:51 | Outpatient (CLI) | payer MEDICARE | END 2021-08-18 13:52 | disposition home or self-care (01) | LOC: BICMAMMO 13:51 | PROVIDERS: ATTEND Family Medicine | DX: Z12.31 Encounter for screening mammogram for malignant neoplasm of breast (principal); Z13.820 Encounter for screening for osteoporosis; Z78.0 Asymptomatic menopausal state; M85.852 Other specified disorders of bone density and structure, left thigh | CPT/HCPCS: 77063; 77067; 77080 ==

== ENCOUNTER 2022-10-30 09:45 | Outpatient (CLI) | payer MEDICARE | END 2022-10-30 09:46 | disposition home or self-care (01) | LOC: BICMAMMO 09:45 | PROVIDERS: ATTEND Family Medicine | DX: Z12.31 Encounter for screening mammogram for malignant neoplasm of breast (principal) | CPT/HCPCS: 77063; 77067 ==